=== PATIENT | female | born 1960 | race Caucasian/White ===

== ENCOUNTER 2019-07-31 11:19 | Emergency (ER) | payer OTHER ==
[2019-07-31 11:41] VITALS: BP 132/54; PULSE 79; TEMP 98.8; BMI 41.8
--- NOTE | 2019-07-31 12:05 | PDOC ---
History of Present Illness - General Chief Complaint: Eye Problem Stated Complaint: LT EYE SWELLING Time Seen by Provider: 07/31/19 11:31 History Source: Patient Exam Limitations: Clinical Condition - History of Present Illness Initial Comments: 07/31/19 12:06 Patient with no significant past medical history present with complaint of 3- day history of worsening swelling and redness to left upper eyelid. Patient reported symptoms started suddenly 3 days ago and went to [place] emergency room yesterday which she was diagnosed with blepharitis and discharged home on topical erythromycin ointment yesterday but report has not helped with symptoms. Denies blurry vision, change in vision, restricted eye movement, headache, nausea, vomiting, dizziness. Denies any other symptoms Is this a multiple visit Asthma Patient?: No Timing/Duration: other (3 days) Past History - Past Medical History Allergies/Adverse Reactions: Allergies Allergy/AdvReac Type Severity Reaction Status Date / Time No Known Allergies Allergy Verified 07/31/19 11:22 Home Medications: Ambulatory Orders Erythromycin 0.5% Eye Ointment [Erythromycin 0.5% Eye Ointment -] 1 applic OS BID 7 Days #1 tube 07/31/19 Hydroxyzine HCl 25 mg PO BID 5 Days #10 tablet 07/31/19 predniSONE [Deltasone -] 20 mg PO BID 5 Days #10 tablet 07/31/19 COPD: No Diabetes: Yes Dialysis: No HTN: Yes Kidney Stones: No - Surgical History Cardiac Surgery: No Neurologic Surgery: No - Immunization History Immunization Up to Date: No - Psycho Social/Smoking Cessation Hx Smoking History: Never smoked Have you smoked in the past 12 months: No Information on smoking cessation initiated: No Hx Alcohol Use: No Drug/Substance Use Hx: No Review of Systems - Review of Systems Able to Perform ROS?: Yes Is the patient limited Urdu proficient: No Constitutional: No: Chills, Fever, Malaise HEENTM: Yes: Symptoms Reported, See HPI, Eye Pain (swelling to left upper eyelid ). No: Blurred Vision, Tearing, Recent change in vision, Double Vision, Cataracts, Ear Pain, Ocular Prothesis, Ear Discharge, Nose Pain, Nose Congestion , Tinnitus, Nose Bleeding, Hearing Loss, Throat Pain, Throat Swelling, Mouth Pain, Dental Problems, Difficulty Swallowing, Mouth Swelling, Other Respiratory: No: Symptoms reported, See HPI, Cough, Orthopnea, Shortness of Breath, SOB with Exertion, SOB at Rest, Stridor, Wheezing, Productive cough, Hemoptysis, Other Cardiac (ROS): No: Symptoms Reported, See HPI, Chest Pain, Edema, Irregular Heart Rate, Lightheadedness, Palpitations, Syncope, Chest Tightness, Other ABD/GI: No: Symptoms Reported, Nausea, Vomiting Musculoskeletal: No: Symptoms Reported Integumentary: Yes: Symptoms Reported, See HPI, Erythema (left upper eyelid) Neurological: No: Symptoms reported, See HPI, Headache, Dizziness All Other Systems: Reviewed and Negative *Physical Exam - Vital Signs Last Vital Signs Temp Pulse Resp BP Pulse Ox 98.8 F 79 16 132/54 L 99 07/31/19 11:23 07/31/19 11:23 07/31/19 11:23 07/31/19 11:23 07/31/19 11:23 - Physical Exam 07/31/19 12:01 GENERAL: Well developed, well nourished. Awake and alert. No acute distress. HEENT: Moderate swelling to left upper eyelid with mild erythema to left upper eyelid. Other eyelids normal. Conjunctivae clear bilateral. Normocephalic, atraumatic. PERRLA, EOMI. Sclera are non-icteric. Moist mucous membranes. Oropharynx is clear. NECK: Supple. Full ROM. CARDIOVASCULAR: Regular rate and rhythm. No murmurs, rubs, or gallops. Distal pulses are 2+ and symmetric. PULMONARY: No evidence of respiratory distress. Lungs clear to auscultation bilaterally. No wheezing, rales or rhonchi. MUSCULOSKELETAL Normal range of motion at all joints. SKIN: Warm and dry. Normal capillary refill. Moderate swelling with mild erythema to left upper eyelid. Left lower eyelid and right eyelids normal. NEUROLOGICAL: Alert, awake, appropriate. Gait is normal without ataxia. PSYCHIATRIC: Cooperative. Good eye contact. Appropriate mood General Appearance: Yes: Nourished, Appropriately Dressed. No: Apparent Distress Medical Decision Making - Medical Decision Making 07/31/19 12:08 Patient with no significant past medical history present with complaint of 3- day history of worsening swelling and redness to left upper eyelid. Patient reported symptoms started suddenly 3 days ago and went to [place] emergency room yesterday which she was diagnosed with blepharitis and discharged home on topical erythromycin ointment yesterday but report has not helped with symptoms. Denies blurry vision, change in vision, restricted eye movement, headache, nausea, vomiting, dizziness. Denies any other symptoms Exam significant for moderate swelling to left upper eyelid with mild erythema to left upper eyelid. Left lower eyelid and right eyelids normal. Extraocular muscle intact. Pupils equal reflexes light bilateral. Patient symptoms likely blepharitis and stable for discharge to continue prescribed erythromycin ointment and will add prednisone 20 mg twice daily for 5 days and hydroxyzine twice daily for 5 days for inflammatory effect with ophthalmology follow-up. 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 Decadron 10 mg p.o. and Pepcid 20 mg p.o. given patient in the ED prior to discharge. Patient stable for discharge Discharge - Discharge Information Problems reviewed: Yes Clinical Impression/Diagnosis: Edema of left upper eyelid Blepharitis of left eye Qualifiers: Blepharitis type: unspecified type Eyelid: upper Qualified Code(s): H01.004 - Unspecified blepharitis left upper eyelid Condition: Stable Disposition: HOME - Admission No - Additional Discharge Information Prescriptions: Erythromycin 0.5% Eye Ointment [Erythromycin 0.5% Eye Ointment -] 1 applic OS BID 7 Days #1 tube Hydroxyzine HCl 25 mg PO BID 5 Days #10 tablet predniSONE [Deltasone -] 20 mg PO BID 5 Days #10 tablet - Follow up/Referral Referrals: Shreya Nova MD [Primary Care Provider] - - Patient Discharge Instructions Patient Printed Discharge Instructions: DI for Blepharitis Additional Instructions: Continue with prescribed erythromycin ointment from previous ER. Apply warm compress to eyelid 2-3 times a day for 5 to 10 minutes. Use prescribed medication to help with swelling. Follow-up with your ophthalmology as soon as possible as discussed. Call ophthalmology tomorrow for follow-up Print Language: KITTITIAN - Post Discharge Activity
[2019-07-31] MEDS ORDERED: FAMOTIDINE 20 MG TABLET PO ONE (12:06)
[2019-07-31] MEDS ORDERED: DEXAMETHASONE LIQUID 0.5 MG/5 ML PO ONE (12:06)
[2019-07-31] MEDS ORDERED: DEXAMETHASONE SOD PHOSPHATE 10 MG/1 ML VIAL ONE (12:07)
[2019-07-31] MEDS ORDERED: FAMOTIDINE 20 MG TABLET ONE (12:08)
== END 2019-07-31 12:12 | disposition home or self-care (01) ==
LOC: JERFT 11:19
DX: H01.004 Unspecified blepharitis left upper eyelid (principal); I10 Essential (primary) hypertension; E11.9 Type 2 diabetes mellitus without complications
CPT/HCPCS: 99281-25